=== PATIENT | female | born 1970 | race Caucasian/White ===

== ENCOUNTER → 2022-11-18 | Outpatient (CLI) | payer SELFPAY ==
[2022-11-21 09:09] LABS: LYME TOTAL ANTIBODY CIA Negative (Negative)
== END | disposition home or self-care (01) ==
LOC: LAB SHORT 09:00 → LAB 09:00
PROVIDERS: Physician Assistant
DX: L30.9 Dermatitis, unspecified (principal)
CPT/HCPCS: 86618